=== PATIENT | female | born 1960 | race Caucasian/White ===

== ENCOUNTER 2017-07-20 16:17 | Emergency (ER) | payer OTHER ==
--- NOTE | 2017-07-20 16:23 | ED Physician Documentation ---
PD HPI UPPER EXT INJURY - Stated complaint Stated Complaint: GLF/L HAND INJ - History obtained from History obtained from: Patient - History of Present Illness Location: Left, Finger (thumb base) Type of injury: Fall (she slipped and fell forward, catching her fall with outstretched hand, got pain at base of thumb.) Associated symptoms: Weakness, Swelling, Discolored. No: Numbness Contributing factors: No: Prior ortho surgery Similar symptoms before: Has not had sx before Recently seen: Not recently seen Review of Systems Skin: denies: Rash, Lesions, Abrasion (s), Laceration (s) Musculoskeletal: denies: Extremity swelling Neurologic: denies: Focal weakness, Numbness PD PAST MEDICAL HISTORY - Present Medications Home Medications: Ambulatory Orders Medication Instructions Recorded Confirmed Cholecalciferol (Vitamin D3) 2,000 unit PO DAILY 07/20/17 07/20/17 [Vitamin D] Estradiol [Vivelle-Dot] 1 each TD DAILY 07/20/17 07/20/17 Fluticasone [Flonase] 1 sprays DANIELLA DAILY 07/20/17 07/20/17 Magnesium 500 mg PO DAILY 07/20/17 07/20/17 Multivitamin W/Minerals [Theragran 1 tab PO DAILY 07/20/17 07/20/17 M] [place]-3/Dha/Epa/Fish Oil [[place] 3 1 tab PO DAILY 07/20/17 07/20/17 500 Softgel] Progesterone,Micronized 100 mg PO DAILY 07/20/17 07/20/17 [Progesterone] - Allergies Allergies/Adverse Reactions: Allergies Allergy/AdvReac Type Severity Reaction Status Date / Time aspirin Allergy Unknown Verified 07/20/17 16:26 ibuprofen Allergy Unknown Verified 07/20/17 16:26 PD ED PE NORMAL - Vitals Vital signs reviewed: Yes - General General: Alert and oriented X 3, No acute distress, Well developed/nourished - HEENT HEENT: Atraumatic - Neck Neck: Supple, no meningeal sign, No adenopathy - Cardiac Cardiac: RRR, No murmur - Respiratory Respiratory: No respiratory distress, Clear bilaterally - Derm Derm: Normal color, Warm and dry - Extremities Extremities: Other (left thumb base with swelling and tenderness, without obfious deformity. ) Results - Vitals Vitals: Vital Signs - 24 hr 07/20/17 16:21 Temperature 36.7 C Heart Rate 75 Respiratory 16 Rate Blood Pressure 108/63 O2 Saturation 100 Oxygen O2 Source Room air - Rads (name of study) left hand Radiology: Prelim report reviewed, EMP read contemporaneously (avulsion fracture base left thumb, will splint and have her f/u wit Ortho/Hand. ) Procedures - Splint (location) left thumb Splint applied by: Tech Type of splint: Prefab velcro wrist, Thumb spica Other: Patient tolerated well, No complications, Neurovascular intact PD MEDICAL DECISION MAKING - ED course Complexity details: reviewed results, considered differential, d/w patient Departure - Departure Disposition: 01 Home, Self Care Clinical Impression: Fall from slip, trip, or stumble Qualifiers: Encounter type: initial encounter Qualified Code(s): W01.0XXA - Fall on same level from slipping, tripping and stumbling without subsequent striking against object, initial encounter Avulsion fracture of left thumb Qualifiers: Encounter type: initial encounter Fracture type: closed Qualified Code(s): S62.502A - Fracture of unspecified phalanx of left thumb, initial encounter for closed fracture Condition: Stable Record reviewed to determine appropriate education?: Yes Instructions: ED Fx Thumb Follow-Up: Bradley Hudson MD [Provider Admit Priv/Credential] - [facility] [place] [Provider Group] [facility] [Provider Group] Comments: Splint for the thumb for the next 3 or 4 weeks. However follow-up with a orthopedist or hand specialist in about 1-1-1/2 weeks for reevaluation. There is a small avulsion fracture at the base of the thumb. The concern with that is potential tear of the ulnar collateral ligament (UCL). This sometimes need surgical repair. Elevate rest and ice the hand and thumb often the next few days. Tylenol if needed for pains. I also provided the names of a couple of the clinics in the [place] area for obtaining primary care as well. Discharge Date/Time: 07/20/17 17:28
[2017-07-20 16:25] VITALS: BP 108/63
--- NOTE | 2017-07-20 17:09 | XRAY Preliminary Report ---
Exam: XR HAND 3 VIEW LT IMPRESSION: 1. Avulsion fracture of the proximal first proximal phalanx at MCP joint with displacement of a 4 mm bone fragment by 8 mm proximally. [facility] SITE ID: [id number]
--- NOTE | 2017-07-20 17:11 | XRAY Report ---
EXAM: LEFT HAND RADIOGRAPHY EXAM DATE: 07/20/2017 04:59 PM. CLINICAL HISTORY: Fall with thumb base and hand pain. COMPARISON: None. TECHNIQUE: 3 views. FINDINGS: Bones: There is a linear avulsion fracture from the first proximal phalanx at the metacarpal phalange al joint. This linear fragment measures approximately 4 mm in length and is displaced by approximatel y 8 mm with rotation. There is an incidental bone cyst in the third distal phalanx. Joints: There is no dislocation. Joint spaces are preserved. Soft Tissues: Normal. No soft tissue swelling. IMPRESSION: 1. Avulsion fracture of the proximal first proximal phalanx at MCP joint with displacement of a 4 mm bone fragment by 8 mm proximally. [facility] Referring Provider Line: [phone] SITE ID: [id number]
== END 2017-07-20 17:28 | disposition home or self-care (01) ==
LOC: ED 16:17
DX: S62.502A Fracture of unspecified phalanx of left thumb, initial encounter for closed fracture (principal); W01.0XXA Fall on same level from slipping, tripping and stumbling without subsequent striking against object, initial encounter
CPT/HCPCS: 99283

== ENCOUNTER 2018-10-28 18:34 | Emergency (ER) | payer OTHER ==
--- NOTE | 2018-10-28 18:57 | ED Physician Documentation ---
History of Present Illness - Stated complaint Stated Complaint: RIGHT BREAST PAIN - Chief complaint Chief Complaint: General - History obtained from History obtained from: Patient - History of Present Illness Timing: Today (This is a 58-year-old woman with benign past medical history has had mild breast pain that sort of diffuse over the last 3 weeks which was much worse today with tenderness especially for brushed upon anything. There is no nipple discharge and she denies fevers chills or other signs or symptoms of systemic illness.) Review of Systems Constitutional: denies: Fever, Chills Cardiac: denies: Chest pain / pressure, Palpitations Respiratory: denies: Dyspnea, Cough PD PAST MEDICAL HISTORY - Past Medical History Musculoskeletal: Osteoarthritis - Past Surgical History Past Surgical History: Yes HEENT: Tonsil/Adenoidectomy - Present Medications Home Medications: Ambulatory Orders Medication Instructions Recorded Confirmed Cholecalciferol (Vitamin D3) 2,000 unit PO DAILY 07/20/17 07/20/17 [Vitamin D] Estradiol [Vivelle-Dot] 1 each TD DAILY 07/20/17 07/20/17 Fluticasone [Flonase] 1 sprays DANIELLA DAILY 07/20/17 07/20/17 Magnesium 500 mg PO DAILY 07/20/17 07/20/17 Multivitamin W/Minerals [Theragran 1 tab PO DAILY 07/20/17 07/20/17 M] [place]-3/Dha/Epa/Fish Oil [[place] 3 1 tab PO DAILY 07/20/17 07/20/17 500 Softgel] Progesterone,Micronized 100 mg PO DAILY 07/20/17 07/20/17 [Progesterone] Cephalexin [Keflex] 500 mg PO Q6H #28 capsule 10/28/18 - Allergies Allergies/Adverse Reactions: Allergies Allergy/AdvReac Type Severity Reaction Status Date / Time aspirin Allergy Unknown Verified 10/28/18 18:45 ibuprofen Allergy Unknown Verified 10/28/18 18:45 - Social History Does the pt smoke?: No Smoking Status: Never smoker Does the pt drink ETOH?: Yes Does the pt have substance abuse?: No - Immunizations Immunizations are current?: Yes - POLST Patient has POLST: No PD ED PE NORMAL - Vitals Vital signs reviewed: Yes - General General: Alert and oriented X 3, No acute distress - Cardiac Cardiac: RRR, No murmur - Respiratory Respiratory: No respiratory distress, Clear bilaterally - Abdomen Abdomen: Non tender - Derm Derm: Other (Breast exam done with Lauryn deras at bedside, she has diffuse tenderness of the right breast especially inferiorly, but I do not see any nipple changes, warmth, redness, swelling or discharge. No axillary adenopathy.) - Neuro Neuro: Alert and oriented X 3, Normal speech Results - Vitals Vitals: Vital Signs - 24 hr 10/28/18 18:42 Temperature 36.6 C Heart Rate 69 Respiratory 18 Rate Blood Pressure 133/65 H O2 Saturation 100 Oxygen O2 Source Room air - Labs Labs: Laboratory Tests 10/28/18 10/28/18 19:02 19:02 WBC 8.6 RBC 4.60 Hgb 14.7 Hct 44.2 MCV 96.2 MCH 31.9 H MCHC 33.2 RDW 12.9 Plt Count 260 MPV 8.5 Neut # (Auto) 5.4 Lymph # (Auto) 2.3 [place] # (Auto) 0.6 Eos # (Auto) 0.2 Baso # (Auto) 0.1 Absolute Nucleated RBC 0.00 Nucleated RBC % 0.0 Sodium 136 Potassium 3.8 Chloride 101 Carbon Dioxide 27 Anion Gap 8.0 BUN 15 Creatinine 0.6 Estimated GFR (MDRD) 103 Glucose 100 Calcium 9.2 Total Bilirubin 0.6 AST 21 ALT 19 Alkaline Phosphatase 58 Total Protein 7.5 Albumin 4.3 Globulin 3.2 Albumin/Globulin Ratio 1.3 Lipase 30 - Rads (name of study) R breast sono Radiology: EMP read contemporaneously (A couple of hypoechoic structures measuring 3 mm and 4 mm short axis II centimeters from the nipple that could be lymph nodes.) PD MEDICAL DECISION MAKING - ED course ED course: This is a 58-year-old woman with relatively acute R breast pain without overt physical findings. She has been getting routine mammography and is due next month. No obvious findings on ultrasound here. We will trial some antibiotics and she is encouraged to follow-up with her primary care physician and still get her mammogram next month as scheduled. Departure - Departure Disposition: 01 Home, Self Care Clinical Impression: Mastitis in female Condition: Good Record reviewed to determine appropriate education?: Yes Instructions: Self Exam Breast, Mammography Prescriptions: Cephalexin [Keflex] 500 mg PO Q6H #28 capsule Comments: Return for new or worsening symptoms. Follow-up next month for mammography as scheduled. Also touch base with your primary care physician. Your blood pressure was elevated today on check into the emergency department. This does not mean that you have hypertension, it is a common phenomenon to come to the emergency department and have elevated blood pressure. I recommend that you see your primary care physician within the week to have it rechecked when you are feeling better.
[2018-10-28 19:08] LABS: BASOPHILS # (AUTO) 0.1 10^3/uL (0.0-0.1); BASOPHILS % (AUTO) 0.9 %; EOSINOPHILS # (AUTO) 0.2 10^3/uL (0.0-0.7); EOSINOPHILS % (AUTO) 2.8 %; HGB - HEMOGLOBIN 14.7 g/dL (12.0-16.0); LYMPHOCYTES # (AUTO) 2.3 10^3/uL (1.5-3.5); LYMPHOCYTES % (AUTO) 26.5 %; MEAN CORPUSCULAR HEMOGLOBIN 31.9 pg (27.0-31.0); MEAN CORPUSCULAR HGB CONC 33.2 g/dL (32.0-36.0); MEAN CORPUSCULAR VOLUME 96.2 fL (81.0-99.0); MEAN PLATELET VOLUME 8.5 fL (7.9-10.8); MONOCYTES # (AUTO) 0.6 10^3/uL (0.0-1.0); MONOCYTES % (AUTO) 6.4 %; NEUTROPHILS # (AUTO) 5.4 10^3/uL (1.5-6.6); NEUTROPHILS % (AUTO) 63.4 %; PLT - PLATELET COUNT 260 10^3/uL (130-450); RED CELL DISTRIBUTION WIDTH 12.9 % (12.0-15.0); WHITE BLOOD COUNT 8.6 x10^3/uL (4.8-10.8)
[2018-10-28 19:20] LABS: ALBUMIN 4.3 g/dL (3.2-5.5); ALBUMIN/GLOBULIN RATIO 1.3 (1.0-2.2); BILIRUBIN,TOTAL 0.6 mg/dL (0.2-1.0); CALCIUM 9.2 mg/dL (8.5-10.3); CREATININE 0.6 mg/dL (0.4-1.0); TOTAL PROTEIN 7.5 g/dL (6.7-8.2)
--- NOTE | 2018-10-28 20:36 | Ultrasound Report ---
Reason: breast pain Procedure Date: 10/28/2018 Accession Number: [id number] / [id number] Procedure: US - Breast Unilateral Complete CPT Code: FULL RESULT: EXAM: EXAM DATE: 10/28/2018 07:40 PM. CLINICAL HISTORY: Breast pain. COMPARISON: None. TECHNIQUE: Ultrasound of the right breast FINDINGS IMPRESSION: No evidence for abscess. A couple of hypoechoic structures measuring 0.3 cm and 0.4 cm short axis at 12:00, 2 cm from the nipple. These could reflect intramammary lymph nodes, indeterminate. Correlation with outpatient dedicated breast imaging is recommended. [facility]
[2018-10-28] MEDS ORDERED: CEPHALEXIN 250 MG Prepack 8 PO ONE (20:43)
[2018-10-28 20:54] VITALS: BP 118/75
== END 2018-10-28 20:54 | disposition home or self-care (01) ==
LOC: ED 18:34
DX: N61.0 Mastitis without abscess (principal); R03.0 Elevated blood-pressure reading, without diagnosis of hypertension
CPT/HCPCS: 36415; 76641; 80053; 83690; 85025; 99283

== ENCOUNTER 2020-01-21 18:57 | Emergency (ER) | payer OTHER ==
[2020-01-21 19:01] VITALS: BP 123/65
[2020-01-21] MEDS: cephALEXin 250 MG CAPSULE PO STA (19:33)
--- NOTE | 2020-01-21 19:34 | ED Physician Documentation ---
History of Present Illness - Stated complaint Stated Complaint: R INDEX FINGER PAIN - Chief complaint Chief Complaint: Wound - History obtained from History obtained from: Patient - History of Present Illness Timing: How many weeks ago (2) Pain level max: 2 Pain level now: 1 - Additonal information Additional information: Right index finger swelling for the past 2 weeks. Initially started at the nail fold at the base of the nail. Nothing makes it better or worse. She has no tenderness along the palm of the hand. Tried topical antibiotics without relief. Review of Systems Constitutional: denies: Fever PD PAST MEDICAL HISTORY - Past Medical History Past Medical History: Yes Musculoskeletal: Osteoarthritis, Osteoporosis - Past Surgical History Past Surgical History: Yes HEENT: Tonsil/Adenoidectomy - Present Medications Home Medications: Ambulatory Orders Medication Instructions Recorded Confirmed Cholecalciferol (Vitamin D3) 2,000 unit PO DAILY 07/20/17 01/21/20 [Vitamin D] Estradiol [Vivelle-Dot] 1 each TD DAILY 07/20/17 01/21/20 Fluticasone [Flonase] 1 sprays DANIELLA DAILY 07/20/17 01/21/20 Magnesium 500 mg PO DAILY 07/20/17 01/21/20 Multivitamin W/Minerals [Theragran 1 tab PO DAILY 07/20/17 01/21/20 M] [place]-3/Dha/Epa/Fish Oil [[place] 3 1 tab PO DAILY 07/20/17 01/21/20 500 Softgel] Progesterone, Micronized 100 mg PO DAILY 07/20/17 01/21/20 [Progesterone] Cephalexin [Keflex] 500 mg PO Q6H #28 capsule 01/21/20 - Allergies Allergies/Adverse Reactions: Allergies Allergy/AdvReac Type Severity Reaction Status Date / Time aspirin Allergy Unknown Verified 01/21/20 19:14 ibuprofen Allergy Unknown Verified 01/21/20 19:14 - Social History Does the pt smoke?: No Smoking Status: Never smoker Does the pt drink ETOH?: Yes Does the pt have substance abuse?: No - Immunizations Immunizations are current?: Yes - POLST Patient has POLST: No PD ED PE NORMAL - Vitals Vital signs reviewed: Yes - General General: Alert and oriented X 3, No acute distress - HEENT HEENT: Moist mucous membranes - Derm Derm: Warm and dry - Extremities Extremities: Other (mild erythema to the R index finger. no tendon tenderness. no fluctuance. FROM. NVI) - Neuro Neuro: Alert and oriented X 3 Results - Vitals Vitals: Vital Signs - 24 hr 01/21/20 18:59 Temperature 36.4 C L Heart Rate 71 Respiratory 16 Rate Blood Pressure 123/65 O2 Saturation 100 Oxygen O2 Source Room air PD MEDICAL DECISION MAKING - ED course Complexity details: considered differential, d/w patient ED course: Patient appears to have a mild cellulitis of the finger. no evidence of deep space infection or toxic tenosynovitis. will place on abx and follow up closely with her PCP. Patient counseled regarding signs and symptoms for which I believe and urgent re-evaluation would be necessary. Patient with good understanding of and agreement to plan and is comfortable going home at this time This document was made in part using voice recognition software. While efforts are made to proofread this document, sound alike and grammatical errors may occur. Departure - Departure Disposition: 01 Home, Self Care Clinical Impression: Cellulitis of finger Qualifiers: Laterality: right Qualified Code(s): L03.011 - Cellulitis of right finger Condition: Good Instructions: ED Infec Skin Cellulitis Follow-Up: ALEJO GR MD [Primary Care Provider] - Within 3 Days Prescriptions: Cephalexin [Keflex] 500 mg PO Q6H #28 capsule Comments: Take all antibiotics until gone. Return if you worsen. This should improve quickly with the antibiotics. If you are worsening or fail to improve, you should be reevaluated. You should have a wound check with your doctor in 3 to 4 days. Discharge Date/Time: 01/21/20 19:37
== END 2020-01-21 19:37 | disposition home or self-care (01) ==
LOC: ED 18:57
DX: L03.011 Cellulitis of right finger (principal)
CPT/HCPCS: 99282; 99283; A9270